=== PATIENT | female | born 2000 | race Two or more races ===

== ENCOUNTER 2021-05-13 19:16 | Emergency (ER) | payer MEDICAID, OTHER ==
[~2021-05-13] VITALS: Ht 162.6 cm; Wt 59.0 kg
[2021-05-13 20:11] LABS: Basophils # (auto) 0 10 ^3/uL (0-0.2); Basophils % (auto) 0.4 % (0.0-2.0); Eosinophils # (auto) 0 10 ^3/uL (0-0.8); Eosinophils % (auto) 0.1 % (0.0-7.0); Hematocrit 40.4 % (36.0-46.0); Hemoglobin 13.7 g/dL (12.2-16.2); Lymphocytes # (auto) 0.6 10 ^3/uL (0.4-5.4); Mean Corpuscular Hemoglobin 29.3 pg (28.0-32.0); Mean Corpuscular Hgb Conc. 33.9 g/dL (32.0-36.0); Mean Corpuscular Volume 86.6 fL (80.0-100.0); Monocytes # (auto) 0.4 10 ^3/uL (0-1.3); Monocytes % (auto) 6.4 % (0.0-12.0); Neutrophils # (auto) 5.9 10 ^3/uL (1.6-8.6); Neutrophils % (auto) 85.1 % (37.0-80.0); Red Blood Cells 4.67 10^6/uL (4.0-5.20); Red Cell Distribution Width 13.1 % (11.8-14.3)
[2021-05-13 20:29] LABS: Albumin 4.3 g/dL (3.4-5.0); BUN/Creatinine Ratio 10.3; Calcium 9.5 mg/dL (8.5-10.1); Potassium 4.2 mmol/L (3.5-5.1)
[2021-05-13 20:32] LABS: Bilirubin, Total 0.5 mg/dL (0.2-1.0); Total Protein 8.1 g/dL (6.4-8.2)
[2021-05-13 20:46] LABS: Urine Bacteria FEW /hpf (None Seen); Urine Blood Negative /uL (Negative); Urine Specific Gravity 1.003 (1.001-1.035); Urine WBC 4 /hpf (0 - 5)
[2021-05-13 21:49] VITALS: BP 103/76
== END 2021-05-13 22:04 | disposition home or self-care (01) ==
LOC: ER 19:24
DX: R10.13 Epigastric pain (principal)
CPT/HCPCS: 36415; 80053; 81001; 83690; 84702; 85025

== ENCOUNTER 2023-12-12 22:32 | Emergency (ER) | payer MEDICAID ==
[~2023-12-12] VITALS: Ht 165.1 cm; Wt 76.9 kg
--- NOTE | 2023-12-12 23:22 | ED.PDOC ---
History of Present Illness HPI Comments A 23 year old female presents to the ED with the chief complaint of left breast pain onset 1 day. Patient states she currently breast feeds and believes she is experiencing pain and redness on her LT breast. Patient has taken Tylenol and Ibuprofen but notices little to no improvement in pain. No other symptoms or modifying factors present at this time. VSS at arrival. Time Seen by MD: 23:12 Reviewed Notes: Nurses Notes, Medications, Allergies Allergies: Coded Allergies: NO KNOWN ALLERGIES (Unverified , 05/13/21) Information Source: Patient, Friend Mode of Arrival: Ambulatory Severity: Moderate Timing: Days Duration: Since onset Prehospital treatment: None Past Medical History PAST MEDICAL HISTORY: Denies Surgical History: Denies all surgeries SOLID WASTE ENGINEER History: Denies all SOLID WASTE ENGINEER Hx Family History Family History: Reviewed,noncontributory to illness Social History Smoker: Non-Smoker Alcohol: Denies ETOH Use Drugs: Denies Drug Use Lives In: Home Constitutional: denies: chills, diaphoresis, fatigue, fever, malaise, sweats, weakness, others EENTM: denies: blurred vision, double vision, ear bleeding, ear discharge, ear drainage, ear pain, ear ringing, eye pain, eye redness, hearing loss, mouth pain, mouth swelling, nasal discharge, nose bleeding, nose congestion, nose pain, photophobia, tearing, throat pain, throat swelling, voice changes, others Respiratory: denies: cough, hemoptysis, orthopnea, SOB at rest, shortness of breath, SOB with excertion, stridor, wheezing, others Cardiovascular: denies: chest pain, dizzy spells, diaphoresis, Dyspnea on exertion, edema, irregular heart beat, left arm pain, lightheadedness, palpitations, PND, syncope, others Gastrointestinal: denies: abdomen distended, abdominal pain, blood streaked bowels, constipated, diarrhea, dysphagia, difficulty swallowing, hematemesis, melena, nausea, poor appetite, poor fluid intake, rectal bleeding, rectal pain, vomiting, others Genitourinary: reports: others (LT breast pain); denies: abnormal vagina bleeding, burning, dyspareunia, dysuria, flank pain, frequency, hematuria, incontinence, pain, , vagina discharge, urgency Neurological: denies: dizziness, fainting, headache, left sided numbness, left sided weakness, numbness, paresthesia, pre-existing deficit, right sided numb ness, right sided weakness, seizure, speech problems, tingling, tremors, weakness, others Musculoskeletal: denies: back pain, gout, joint pain, joint swelling, muscle pain, muscle stiffness, neck pain, others Integumetry: denies: bruises, change in color, change in hair/nails, dryness, laceration, lesions, lumps, rash, wounds, others Allergic/Immunocompromised: denies: Difficulty Healing, Frequent Infections, Hives, Itching, others Hematologic/Lymphatic: denies: anemia, blood clots, easy bleeding, easy bruising, swollen glands, others Endocrine: denies: excessive hunger, excessive sweating, excessive thirst, excessive urination, flushing, intolerance to cold, intolerance to heat, unexplained weight gain, unexplained weight loss, others Psychiatric: denies: anxiety, bipolar disorder, depression, hopeless, panic disorder, schizophrenia, sleepless, suicidal, others All Other Systems: Reviewed and Negative Physical Exam General Appearance: Mild Distress (Due to L breast pain concerns), Normal HEENT: Normal ENT Inspection, Pharynx Normal, TMs Normal Neck: Full Range of Motion, Non-Tender, Normal, Normal Inspection Respiratory: Chest Non-Tender, Lungs Clear, No Accessory Muscle Use, No Respiratory Distress, Normal Breath Sounds Cardiovascular: No Edema, No JVD, No Murmur, No Gallop, Normal Peripheral Pulses, Regular Rate/Rhythm Breast Exam: None (Superior aspect of L breast reveals a hoopa sized area of erythema and edema. TTP. Presents as a mastitis) Gastrointestinal: No Organomegaly, Non Tender, No Pulsatile Mass, Normal Bowel Sounds, Soft Genitalia: Deferred Pelvic: Deferred Rectal: Deferred Extremities: No calf tenderness, Normal capillary refill, Normal inspection, Normal range of motion, Non-tender, No pedal edema Musculoskeletal : Apperance: Normal Neurologic: Alert, magazine editor II-XII nml as Tested, No Motor Deficits, Normal Affect, Normal Mood, No Sensory Deficits Cerebellar Function: Normal Reflexes: Normal Skin: Dry, Normal Color, Warm Lymphatic: No Adenopathy Was a procedure done? Was a procedure done?: No Differential Dx Considerations may include: Breast abscess, Mastitis, swollen breast gland X-Ray, Labs, Meds, VS Vital Signs Date Time Temp Pulse Resp B/P (MAP) Pulse Ox O2 Delivery O2 Flow Rate FiO2 12/13/23 00:19 98.6 66 16 91/60 (70) 96 98.6 12/13/23 00:19 66 16 96 Room Air 12/12/23 22:40 98.3 66 18 107/70 (82) 96 Current Medications Medications (Trade) Dose Ordered Sig/Anastacio Route Start Time Stop Time Status Last Admin Clindamycin HCl (Cleocin Capsule) 600 mg ONCE ONCE PO 12/12/23 23:45 12/12/23 23:46 DC 12/13/23 00:29 Acetaminophen/ Hydrocodone Bitart ([place] 5/325MG Tab) 1 tab ONCE ONCE PO 12/13/23 00:30 12/13/23 00:31 DC 12/13/23 00:34 X-Ray, Labs, Meds, VS Comment Pt. is suffering from a mastitis event. Pt. was given 1st dose of ABX prior to D/C. Tylenol/Motrin as needed for pain. Time of 1ST Reevaluation: 00:06 Reevaluation 1ST: Improved Consultation: PCP Patient Education/Counseling: Diagnosis, Treatment, Prognosis Family Education/Counseling: Diagnosis, Treatment, No Family Present Departure 1 Departure Time of Disposition: 00:07 Impression: Primary Impression: Mastitis Disposition: 01 HOME / SELF CARE / HOMELESS Condition: Stable Additional Instructions: Advise ABX as directed and to completion. Pain meds as needed. F/U with PMD once ABX are completed for re-evaluation. If you use norco, you will need to pump and dump your breast milk prior to feeding your baby. e-Prescriptions Hydrocodone-Acetaminophen (Hydrocodone Bitartrate/AC 5-325 mg) 1 Tab Tab 1 TAB PO Q6HP PRN, #6 TAB Prov: STACY YUAN PAC 12/13/23 Ibuprofen Micronized (Ibuprofen) 800 Mg Tab 800 MG PO Q8HP PRN, #20 TAB Prov: STACY YUAN PAC 12/13/23 Acetaminophen (Acetaminophen) 500 Mg Tab 500 MG PO Q4HP PRN, #30 TAB Prov: STACY YUAN PAC 12/13/23 Dicloxacillin Sodium (Dicloxacillin Sodium) 500 Mg Cap 1 CAP PO QID for 10 Days, #40 CAP Prov: STACY YUAN PAC 12/13/23 Discharged With: Self, Friend Critical Care Note Critical Care Time?: No Stability Stability form required: No Heart Score Heart Score: Heart Score Response (Comments) Value History N/A 0 EKG N/A 0 Age N/A 0 Risk Factors N/A 0 Troponin N/A 0 Total 0 I personally scribed for STACY YUAN PAC ([email or web address]) on 12/12/23 at 23:21. Electronically submitted by Rosamaria Romero ([email or web address]). STACY UYAN PAC Dec 12, 2023 23:21
[2023-12-13 00:19] VITALS: BP 91/60; PULSE 66; RESP 16; TEMP 98.6; O2SAT 96
[2023-12-13] MEDS: CLINDAMYCIN HCL 150 MG CAP PO ONE (00:29)
[2023-12-13] MEDS: HYDROcodone-ACET 5/325MG TAB PO ONE (00:34)
[2023-12-13] MEDS ORDERED: ACET500T58 PO (00:59)
[2023-12-13] MEDS ORDERED: DICL500C76 PO (00:59)
[2023-12-13] MEDS ORDERED: HYDR-4902 PO (00:59)
[2023-12-13] MEDS ORDERED: IBUP-1455 PO (00:59)
== END 2023-12-13 01:14 | disposition home or self-care (01) ==
LOC: ER 22:32
DX: N61.0 Mastitis without abscess (principal)